=== PATIENT | male | born 1960 | race Caucasian/White ===

== ENCOUNTER 2016-12-23 18:04 | Emergency (ER) | payer OTHER ==
--- NOTE | 2016-12-23 19:26 | ED NURSING NOTES ---
Clinical Report - Nurses [facility] [address] [place] [address] 12/23/2016 18:11 Patient: SENTHIL VILLAGRAN TRIAGE Triage time 18:32. Acuity: LEVEL 4. Chief Complaint: FACIAL DROOP and (FAST exam negative). Alert. No acute distress. HUAN COMA SCORE: [place] Coma Scale: 15- eyes open spontaneously (4); best verbal response- oriented x 4 (5); best motor response- obeys commands (6). --18:37 Janel Renner R.N. 18:32 12/23/16. BP: 141/65. HR: 83. RR: 18. O2 saturation: 99%. Temp: 98.2 F. Pain level now: 0/10. --18:37 Janel Renner R.N. Weight: 83.9 kg stated. Height/Length: 67 inches Per Patient. BMI: 29. --18:33 Janel Renner R.N. Medications Insulin humulog and Lantus. --18:34 Janel Renner R.N. Simvastatin Oral. --18:34 Janel Renner R.N. Allergies No Known Drug Allergy. --18:33 Janel Renner R.N. History Arrived by private vehicle. Primary physician (Tera Castro). This started 3 days ago. ( Pt has no motor deficits or sensory deficits, except facial droop). PAST MEDICAL HX: Diabetes mellitus. SOCIAL HX: Never smoker. No alcohol use or drug use. NUTRITIONAL RISK ASSESSMENT: The nutritional risk assessment revealed no deficiencies. FUNCTIONAL ASSESSMENT: Functional assessment: no impairments noted. --18:37 Janel Renner R.N. Interventions ID band on patient. To room. --18:37 Janel Renner R.N. PHYSICAL ASSESSMENT GENERAL / NEURO / PSYCH: ( Pt assessed in WR prior to triage by myself and ERMD). --18:37 Renner, Janel, R.N. GENERAL / NEURO / PSYCH: Awake. Oriented X 4. Alert. Appears in no acute distress. Mild slurred speech. Mood/affect normal. NIH Stroke Scale: score 1. Level of Consciousness: alert (0). LOC Questions: both (0). LOC Commands: both (0). Best gaze: normal (0). Visual field loss: none (0). Facial palsy: minor (1). Motor arm: no drift right arm (0) and no drift left arm (0). Motor leg: no drift right leg (0) and no drift left leg (0). Limb ataxia: none (0). Sensory loss: none (0). Aphasia: none (0). Dysarthria: normal (0). Extinction and inattention: none (0). --18:39 Janel Renner R.N. NURSING PROGRESS NOTES 18:39 12/23/16. Patient identifiers checked. Call light placed in reach. Bed placed in lowest position. Patient ready for evaluation- chart flagged. --18:39 Janel Renner R.N. 19:32 12/23/2016 DOXYCYCLINE HYCLATE PO 100 mg given. Allergies verified and confirmed 5 rights. --19:32 Liza Nelson 19:32 12/23/2016 Prednisone PO 60 mg given. Allergies verified and confirmed 5 rights. --19:32 Liza Nelson DISPOSITION / DISCHARGE Departure time: 19:38. Condition at departure: improved. No learning barriers present. Discharge instructions provided and reviewed with the patient. Reviewed medication(s) side effects, precautions, dosing and course information. Prescription(s) given to the patient. Patient verbalized understanding. Written instructions provided in Turkish. No warning instructions, treatment instructions, referrals given to the patient, diet instructions or activity restrictions. No follow up contact number given or stop smoking instructions. No work note given. The patient was discharged by the physician. He was discharged home and accompanied by family. He left the Emergency Department ambulatory and via private vehicle. Family member driving. FALL RISK ASSESSMENT: Fall risk assessment completed. No fall risk identified. --19:38 Liza Nelson 19:37 12/23/16. BP: 128/75. HR: 74. RR: 16. O2 saturation: 99%. Temp: deferred. Pain level now: 0/10. --19:38 Janeth Nelson. Locked/Released at 12/23/2016 19:38 by Liza Nelson
--- NOTE | 2016-12-23 19:26 | ED ORDER SUMMARY ---
..... Patient: SENTHIL VILLAGRAN OrderSheet [facility] VisitID: [id number] [address] [place] [address] 56y, M Registration Date/Time: 12/23/2016 ORDER SHEET Weight: 83.9 kg (stated) Allergies: No Known Drug Allergy GENERAL ORDERS: MEDICATION ORDERS: Doxycycline Hyclate PO 100 mg (NOW) (19:13 12/23/2016 Bhupinder Hernandez) (19:32 TBkelli R.N.) Prednisone PO 60 mg (NOW) (19:25 12/23/2016 Bhupinder Hernandez) (19:32 Saw R.N.) IV FLUIDS: ORDER SHEET NOTES: [Electronically signed by Kerry Stephen R.N. (19:38 12/23/2016)] [Electronically signed by Toy Yuen Dr. (09:53 12/24/2016)] [Electronically locked/signed by Kerry Stephen R.N. (19:38 12/23/2016)]
--- NOTE | 2016-12-23 19:26 | ED ORDER SUMMARY ---
..... Patient: SENTHIL VILLAGRAN OrderSheet [facility] VisitID: [id number] [address] [place] [address] 56y, M Registration Date/Time: 12/23/2016 ORDER SHEET Weight: 83.9 kg (stated) Allergies: No Known Drug Allergy GENERAL ORDERS: MEDICATION ORDERS: Doxycycline Hyclate PO 100 mg (NOW) (19:13 12/23/2016 Bhupinder Hernandez) (19:32 TBkelli R.N.) Prednisone PO 60 mg (NOW) (19:25 12/23/2016 Bhupinder Hernandez) (19:32 Saw R.N.) IV FLUIDS: ORDER SHEET NOTES: [Electronically signed by Kerry Stephen R.N. (19:38 12/23/2016)] [Electronically signed by Toy Yuen Dr. (09:53 12/24/2016)] [Electronically locked/signed by Kerry Stephen R.N. (19:38 12/23/2016)]
--- NOTE | 2016-12-23 19:26 | ED CLINICAL REPORT ---
Clinical Report - Physicians/Mid Levels [facility] [address] [place] [address] 12/23/2016 18:11 Patient: SENTHIL VILLAGRAN Time Seen: 1850. Arrived- By private vehicle. Historian- patient. HISTORY OF PRESENT ILLNESS Chief Complaint: FACIAL DROOP. The patient has had weakness. No tingling, impaired speech or swallowing or visual disturbance. This started today, patient was last known well (yesterday) and is still present (unchanged). It was abrupt in onset and has been constant but is not gone now. At its maximum deficit described as mild. When seen in the E.D., deficit described as mild. No dizziness, altered mental status, seizure or blackouts. Usually is alert and oriented X3 and has normal mobility. (recent travel from [place]. goes hiking out in the [place] frequently and pulls ticks off of his dog regularly. visiting daughter who lives nearby). Similar symptoms previously: Recent medical care: Not recently seen/assessed. REVIEW OF SYSTEMS The patient has had skin rash. All systems otherwise negative, except as recorded above. PAST HISTORY See nurses notes. SOCIAL HISTORY Never smoker. No alcohol use or drug use. Recent travel. Is a local resident. ADDITIONAL NOTES The nursing notes have been reviewed. PHYSICAL EXAM Vital Signs: 12/23/2016 18:32 BP: 141/65. HR: 83. RR: 18. O2 saturation: 99%. Temp: 98.2 F. Pain level now: 0/10. Oxygen saturation normal. Appearance: Alert. No acute distress. Head: Head atraumatic. Eyes: Pupils equal, round and reactive to light. ENT: Normal ENT inspection. Airway intact. Pharynx normal. (no tongue deviation). Neck: Normal inspection. Neck supple. CVS: Normal heart rate and rhythm. Heart sounds normal. Pulses normal. Respiratory: No respiratory distress. Breath sounds normal. Abdomen: Soft and nontender. No organomegaly. Skin: Skin warm and dry. Normal skin color. No rash. Normal skin turgor. Extremities: Extremities exhibit normal ROM. No lower extremity edema. Neuro: Alert. Oriented X 3. Mood/affect normal. Speech normal. No cerebellar findings. No sensory deficit. (forehead and eyebrow involved. unable to completely close right eye at rest. right facial droop. sensation intact. no vesicular rash. non-tender. no masses.). PROGRESS AND PROCEDURES Course of Care: The patient is a pleasant 56 yo male with camping and from [place]. Higher likelihood of Lyme exposure. No signs of stroke. Patient discussed with patient risks and benefits of treatment. Agreeable to the treatment and plan. Steroids and abx ordered. Antivirals have not shown to change outcome. Patient non-toxic. No concern for meningitis. Is peripheral in nature. So signs of sepsis. Discussed with patient work up, diagnosis, home care, follow up, and return precautions. All quetions answered. patient expressed understanding of these instructions and was agreeable to them. Disposition: Discharged. Condition: good. CLINICAL IMPRESSION 12/23/2016 18:32 BP: 141/65. HR: 83. RR: 18. O2 saturation: 99%. Temp: 98.2 F. Pain level now: 0/10. Hypertensive. Oxygen saturation normal. 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 Essential hypertension. Lyme Disease (acute). INSTRUCTIONS Warnings: GENERAL WARNINGS: Return or contact your physician immediately if your condition worsens or changes unexpectedly, if not improving as expected, or if other problems arise. Specifically return if pain, vomiting, bleeding, breathing difficulty or fever. Your Current Medications: CONTINUE TAKING THE FOLLOWING MEDICATIONS: Insulin humulog and Lantus*. Simvastatin Oral. Prescription Medications: Prednisone every day for 4 days. Dispense sufficient quantity. No refills. (60 mg PO. Start on 12/24/2016.) Doxycycline 100 mg: Take 1 capsule orally every 12 hours for 10 days. No refill. OTC Medications: Lacri-Lube ophthalmic ointment (available over the counter): take according to label instructions. Follow-up: Return to the emergency department as needed. Follow up with your doctor. Reason for referral: recheck today's concerns in 3 days or as soon as you return home. Summary of care provided to patient via paper. Screening today revealed the patient's blood pressure to be in the normal range. The patient should follow up with a primary care provider for blood pressure management. Understanding of the discharge instructions verbalized by patient. (Electronically signed by Toy Yuen Dr. 12/24/2016 9:53)
--- NOTE | 2016-12-24 09:54 | ED MED RECONCILIATION SUMMARY ---
Patient: SENTHIL VILLAGRAN Medication Reconciliation Report [facility] VisitID: [id number] [address] [place] [address] 56y, M Registration Date/Time: 12/23/2016 Weight: 83.9 kg Height/Length: 67 in. BMI: 29.0 ALLERGIES: No Known Drug Allergy The patient's Home Medications are listed below: CONTINUE TAKING THE FOLLOWING MEDICATIONS: Insulin humulog and Lantus Simvastatin Oral The source(s) of the original Home Medication information: Not obtained. The following Medications were given to the patient in the Emergency Department: DOXYCYCLINE HYCLATE [PO] PO 100 mg, administered: 12/23/2016 7:32:00 PM Prednisone [PO] PO 60 mg, administered: 12/23/2016 7:32:00 PM The following Medications were prescribed to the patient: Prednisone every day for 4 days. Dispense sufficient quantity. No refills.(60 mg PO. Start on 12/24/2016.) -- Toy Yuen Dr. Doxycycline 100 mg: Take 1 capsule orally every 12 hours for 10 days. No refill. -- Toy Yuen Dr. Lacri-Lube ophthalmic ointment (available over the counter): take according to label instructions. -- Toy Yuen Dr.
--- NOTE | 2016-12-24 09:54 | ED MAR SUMMARY ---
..... Medication Administration Record [facility] [address] [place] [address] Patient: SENTHIL VILLAGRAN Visit ID: [id number] 56y, M Weight: 83.9 kg Height/Length: 67 in BMI: 29 ALLERGIES: No Known Drug Allergy Given 19:12/23/2016 Omar R.N. Medication Administered: DOXYCYCLINE HYCLATE [PO], Dose: 100 mg PO. Medication Ordered: Doxycycline Hyclate PO 100 mg (NOW). Given 19:12/23/2016 Omar, R.N. Medication Administered: PREDNISONE [PO], Dose: 60 mg PO. Medication Ordered: Prednisone PO 60 mg (NOW).
--- NOTE | 2016-12-24 09:54 | ED MAR SUMMARY ---
..... Medication Administration Record [facility] [address] [place] [address] Patient: SENTHIL VILLAGRAN Visit ID: [id number] 56y, M Weight: 83.9 kg Height/Length: 67 in BMI: 29 ALLERGIES: No Known Drug Allergy Given 19:12/23/2016 Omar R.N. Medication Administered: DOXYCYCLINE HYCLATE [PO], Dose: 100 mg PO. Medication Ordered: Doxycycline Hyclate PO 100 mg (NOW). Given 19:12/23/2016 Omar, R.N. Medication Administered: PREDNISONE [PO], Dose: 60 mg PO. Medication Ordered: Prednisone PO 60 mg (NOW).
--- NOTE | 2016-12-24 09:54 | ED MED RECONCILIATION SUMMARY ---
Patient: SENTHIL VILLAGRAN Medication Reconciliation Report [facility] VisitID: [id number] [address] [place] [address] 56y, M Registration Date/Time: 12/23/2016 Weight: 83.9 kg Height/Length: 67 in. BMI: 29.0 ALLERGIES: No Known Drug Allergy The patient's Home Medications are listed below: CONTINUE TAKING THE FOLLOWING MEDICATIONS: Insulin humulog and Lantus Simvastatin Oral The source(s) of the original Home Medication information: Not obtained. The following Medications were given to the patient in the Emergency Department: DOXYCYCLINE HYCLATE [PO] PO 100 mg, administered: 12/23/2016 7:32:00 PM Prednisone [PO] PO 60 mg, administered: 12/23/2016 7:32:00 PM The following Medications were prescribed to the patient: Prednisone every day for 4 days. Dispense sufficient quantity. No refills.(60 mg PO. Start on 12/24/2016.) -- Toy Yuen Dr. Doxycycline 100 mg: Take 1 capsule orally every 12 hours for 10 days. No refill. -- Toy Yuen Dr. Lacri-Lube ophthalmic ointment (available over the counter): take according to label instructions. -- Toy Yuen Dr.
--- NOTE | 2016-12-24 09:54 | ED DISCHARGE INSTRUCTIONS ---
Patient: SENTHIL VILLAGRAN General Instructions [facility] VisitID: [id number] [place] [address] 56y, M Registration Date/Time: 12/23/2016 12/23/2016 18:32 BP: 141/65. HR: 83. RR: 18. O2 saturation: 99%. Temp: 98.2 F. Pain level now: 0/10. Hypertensive. Oxygen saturation normal. 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 Essential hypertension. Lyme Disease (acute). INSTRUCTIONS Warnings: GENERAL WARNINGS: Return or contact your physician immediately if your condition worsens or changes unexpectedly, if not improving as expected, or if other problems arise. Specifically return if pain, vomiting, bleeding, breathing difficulty or fever. Your Current Medications: CONTINUE TAKING THE FOLLOWING MEDICATIONS: Insulin humulog and Lantus*. Simvastatin Oral. Prescription Medications: Prednisone every day for 4 days. Dispense sufficient quantity. No refills. (60 mg PO. Start on 12/24/2016.) Doxycycline 100 mg: Take 1 capsule orally every 12 hours for 10 days. No refill. OTC Medications: Lacri-Lube ophthalmic ointment (available over the counter): take according to label instructions. Follow-up: Return to the emergency department as needed. Follow up with your doctor. Reason for referral: recheck today's concerns in 3 days or as soon as you return home. Summary of care provided to patient via paper. Screening today revealed the patient's blood pressure to be in the normal range. The patient should follow up with a primary care provider for blood pressure management. Understanding of the discharge instructions verbalized by patient. ADDITIONAL INFORMATION Porter's Palsy Porter's Palsy is a problem involving the nerve that controls the muscles on one side of the face. The cause is unknown, but may be related to inflammation of the nerve. Most persons with this problem recover completely within 3-6 months. Symptoms on the involved side of the face may include: inability to close the upper eyelid, excess tearing, facial drooping with uneven mouth shape, drooling, facial numbness or pain, changes in taste, sensitivity to sound. The most serious problem is possible injury to the eye. Since you cannot blink normally, you must protect your eye from flying dust particles, wind, etc. Also, since tears cannot lubricate the eye without blinking, there is danger that the cornea (clear part in front of the colored iris) will dry out and form an ulcer. This could permanently affect vision. Home Care: Use Artificial Tears frequently during the day and at bedtime to prevent drying. These drops are available without prescription at your drug store. Wear protective glasses especially when outside to protect from flying debris. Tape the eyelid closed at bedtime with a paper tape (available at your pharmacy). This has a very mild adhesive to avoid injury to the lid. This will protect your eye from injury while you sleep. Sometimes medicines are prescribed to reduce inflammation or treat specific viral infections of the nerve. If medicines are prescribed, take them exactly as directed. Follow Up with your doctor or with an Ear/Nose/Throat specialist within the next two weeks. Get Prompt Medical Attention if any of the following occur: Redness of the eye or pus draining from the eye Change in vision or pain in the eye Appearance of headache, neck pain, fever or other unexplained symptoms Difficulty with speech or walking Weakness in one arm or leg High Blood Pressure -- To Be Confirmed [No Tx] Your blood pressure was higher today than normal. Sometimes anxiety or pain can cause a temporary rise in blood pressure that later returns to normal. If your blood pressure is high on one measurement, this does not mean that you have hypertension (a chronic illness). However, you must have your blood pressure measured again within the next few days to find out if its still high. A normal blood pressure is 120/80 or less. The first (top) number is the "systolic" pressure. The second (bottom) number is the "diastolic" pressure. Hypertension exists when either the top number is 140 or higher, OR the bottom number is 90 or higher on repeated measurements. Blood pressure in the range of 120-140 (systolic) or 80-89 (diastolic) is considered "pre-hypertension". This means your are at risk for getting hypertension. You should have regular blood pressure checks to be sure your blood pressure is not rising. Home Care: Measure your blood pressure on 3 different days and write down the results. This can be done at your doctor's office or this facility. Some pharmacies and grocery stores offer automated blood pressure machines for your use. Follow Up: If your blood pressure is "high" (over 120/80) on 2 out of 3 days, you will need to follow up with your doctor for further evaluation and treatment. DO NOT PUT THIS OFF! Untreated high blood pressure increases the risk for heart attack, also known as acute myocardial infarction, or AMI, and stroke. It is a treatable condition. Get Prompt Medical Attention if any of the following occur: Chest pain or shortness of breath Severe headache Throbbing or rushing sound in the ears Nosebleed Sudden severe abdominal pain Extreme drowsiness, confusion or fainting Dizziness or vertigo (dizziness with spinning sensation) Weakness of an arm or leg or one side of the face Difficulty with speech or vision Lyme Disease Lyme disease is caused by bacteria passed to you during the bite of a deer tick. Because the tick is so small, most people with Lyme disease do not remember being bitten. Since tests for Lyme disease are not always accurate early in the disease, the diagnosis can be hard to make. If the disease is suspected and the tests are negative, repeat testing may be required. If untreated, Lyme disease may affect many parts of the body over months to years. Not everyone will have all the symptoms. The first symptoms may appear within a few days to a month after the tick bite. These symptoms include a round red rash that grows up to 12 inches across and looks like a bull's-eye target with darker outer ring and a darker center. There may fever, chills, fatigue, body aches and headache. This first stage may be skipped in 20-30% of infected persons. It goes away on its own, even without treatment. If the first symptoms were not treated, new symptoms may appear weeks to months after the bite. These symptoms include episodes of joint pain and swelling (especially the knees). Chronic arthritis develops in about 10% of these people. Later, there may be weakness in an arm, leg or one side of the face, meningitis (headache, fever and neck pain), numbness and tingling in the arms or legs, confusion, and memory loss. When the symptoms of Lyme disease are treated early enough, they can be stopped. Sometimes a second or third course of antibiotics may be needed if symptoms persist. Home Care: 1) If oral antibiotics have been prescribed, it is very important that you take them exactly as directed until they are completely gone. 2) You may use acetaminophen (Tylenol) or ibuprofen (Motrin, Advil) to control pain, unless another pain medicine was prescribed. [ NOTE : If you have chronic liver or kidney disease or ever had a stomach ulcer or GI bleeding, talk with your doctor before using these medicines.] (Aspirin should never be used in anyone under 18 years of age who is ill with a fever. It may cause severe liver damage.) Follow Up with your doctor as directed. Get Prompt Medical Attention if any of the following occur: -- Current symptoms get worse -- Unexplained fever, neck pain or stiffness, or headache -- Arm, leg or facial weakness -- Irregular or rapid heart beat -- Joint pain or swelling -- Numbness and tingling in the arms or legs, confusion or memory loss Prednisone Oral tablet What is this medicine? PREDNISONE (PRED ni sone) is a corticosteroid. It is commonly used to treat inflammation of the skin, joints, lungs, and other organs. Common conditions treated include asthma, allergies, and arthritis. It is also used for other conditions, such as blood disorders and diseases of the adrenal glands. How should I use this medicine? Take this medicine by mouth with a glass of water. Follow the directions on the prescription label. Take this medicine with food. If you are taking this medicine once a day, take it in the morning. Do not take more medicine than you are told to take. Do not suddenly stop taking your medicine because you may develop a severe reaction. Your doctor will tell you how much medicine to take. If your doctor wants you to stop the medicine, the dose may be slowly lowered over time to avoid any side effects. Talk to your production counter regarding the use of this medicine in children. Special care may be needed. What side effects may I notice from receiving this medicine? Side effects that you should report to your doctor or health career and transition teacher as soon as possible: allergic reactions like skin rash, itching or hives, swelling of the face, lips, or tongue changes in emotions or moods changes in vision depressed mood eye pain fever or chills, cough, sore throat, pain or difficulty passing urine increased thirst swelling of ankles, feet Side effects that usually do not require medical attention (report to your doctor or health career and transition teacher if they continue or are bothersome): confusion, excitement, restlessness headache nausea, vomiting skin problems, acne, thin and shiny skin trouble sleeping weight gain What may interact with this medicine? Do not take this medicine with any of the following medications: metyrapone mifepristone This medicine may also interact with the following medications: aminoglutethimide amphotericin B aspirin and aspirin-like medicines barbiturates certain medicines for diabetes, like glipizide or glyburide cholestyramine cholinesterase inhibitors cyclosporine digoxin diuretics ephedrine female hormones, like estrogens and control pills isoniazid ketoconazole NSAIDS, medicines for pain and inflammation, like ibuprofen or naproxen phenytoin rifampin toxoids vaccines warfarin What if I miss a dose? If you miss a dose, take it as soon as you can. If it is almost time for your next dose, talk to your doctor or health career and transition teacher. You may need to miss a dose or take an extra dose. Do not take double or extra doses without advice. Where should I keep my medicine? Keep out of the reach of children. Store at room temperature between 15 and 30 degrees C (59 and 86 degrees F). Protect from light. Keep container tightly closed. Throw away any unused medicine after the expiration date. What should I tell my health care provider before I take this medicine? They need to know if you have any of these conditions: Calhoun's syndrome diabetes glaucoma heart disease high blood pressure infection (especially a virus infection such as chickenpox, cold sores, or herpes) kidney disease liver disease mental illness myasthenia gravis osteoporosis seizures stomach or intestine problems thyroid disease an unusual or allergic reaction to lactose, prednisone, other medicines, foods, dyes, or preservatives or trying to get breast-feeding What should I watch for while using this medicine? Visit your doctor or health career and transition teacher for regular checks on your progress. If you are taking this medicine over a prolonged period, carry an identification card with your name and address, the type and dose of your medicine, and your doctor's name and address. This medicine may increase your risk of getting an infection. Tell your doctor or health career and transition teacher if you are around anyone with measles or chickenpox, or if you develop sores or blisters that do not heal properly. If you are going to have surgery, tell your doctor or health career and transition teacher that you have taken this medicine within the last twelve months. Ask your doctor or health career and transition teacher about your diet. You may need to lower the amount of salt you eat. This medicine may affect blood sugar levels. If you have diabetes, check with your doctor or health career and transition teacher before you change your diet or the dose of your diabetic medicine. Doxycycline Monohydrate Oral tablet What is this medicine? DOXYCYCLINE (dox elsy sanches) is a tetracycline antibiotic. It kills certain bacteria or stops their growth. It is used to treat many kinds of infections, like dental, skin, respiratory, and urinary tract infections. It also treats acne, Lyme disease, malaria, and certain sexually transmitted infections. How should I use this medicine? Take this medicine by mouth with a full glass of water. Follow the directions on the prescription label. It is best to take this medicine without food, but if it upsets your stomach take it with food. Take your medicine at regular intervals. Do not take your medicine more often than directed. Take all of your medicine as directed even if you think you are better. Do not skip doses or stop your medicine early. Talk to your production counter regarding the use of this medicine in children. Special care may be needed. While this drug may be prescribed for children as young as 8 years old for selected conditions, precautions do apply. What side effects may I notice from receiving this medicine? Side effects that you should report to your doctor or health career and transition teacher as soon as possible: allergic reactions like skin rash, itching or hives, swelling of the face, lips, or tongue difficulty breathing fever itching in the rectal or genital area pain on swallowing redness, blistering, peeling or loosening of the skin, including inside the mouth severe stomach pain or cramps unusual bleeding or bruising unusually weak or tired yellowing of the eyes or skin Side effects that usually do not require medical attention (report to your doctor or health career and transition teacher if they continue or are bothersome): diarrhea loss of appetite nausea, vomiting What may interact with this medicine? antacids barbiturates control pills bismuth subsalicylate carbamazepine methoxyflurane other antibiotics phenytoin vitamins that contain iron warfarin What if I miss a dose? If you miss a dose, take it as soon as you can. If it is almost time for your next dose, take only that dose. Do not take double or extra doses. Where should I keep my medicine? Keep out of the reach of children. Store at room temperature, below 30 degrees C (86 degrees F). Protect from light. Keep container tightly closed. Throw away any unused medicine after the expiration date. Taking this medicine after the expiration date can make you seriously ill. What should I tell my health care provider before I take this medicine? They need to know if you have any of these conditions: liver disease long exposure to sunlight like working outdoors stomach problems like colitis an unusual or allergic reaction to doxycycline, tetracycline antibiotics, other medicines, foods, dyes, or preservatives or trying to get breast-feeding What should I watch for while using this medicine? Tell your doctor or health career and transition teacher if your symptoms do not improve. Do not treat diarrhea with over the counter products. Contact your doctor if you have diarrhea that lasts more than 2 days or if it is severe and watery. Do not take this medicine just before going to bed. It may not dissolve properly when you lay down and can cause pain in your throat. Drink plenty of fluids while taking this medicine to also help reduce irritation in your throat. This medicine can make you more sensitive to the sun. Keep out of the sun. If you cannot avoid being in the sun, wear protective clothing and use sunscreen. Do not use sun lamps or tanning beds/booths. control pills may not work properly while you are taking this medicine. Talk to your doctor about using an extra method of control. If you are being treated for a sexually transmitted infection, avoid sexual contact until you have finished your treatment. Your sexual partner may also need treatment. Avoid antacids, aluminum, calcium, magnesium, and iron products for 4 hours before and 2 hours after taking a dose of this medicine. If you are using this medicine to prevent malaria, you should still protect yourself from contact with mosquitos. Stay in screened-in areas, use mosquito nets, keep your body covered, and use an insect repellent. You have been given the following additional information: Poretr's Palsy Hypertension, To Be Confirmed Lyme Disease Prednisone Oral tablet Doxycycline Monohydrate Oral tablet (Electronically signed by Toy Yuen Dr. 12/24/2016 9:53)
== END 2016-12-23 19:38 | disposition home or self-care (01) ==
LOC: ED SRH 18:04 → EDBD 18:11 → ED SRH 19:38
DX: G51.0 Bell's palsy (principal); I10 Essential (primary) hypertension; A69.20 Lyme disease, unspecified; E11.9 Type 2 diabetes mellitus without complications; Z79.4 Long term (current) use of insulin; Z79.899 Other long term (current) drug therapy